=== PATIENT | female | born 1995 | race Caucasian/White ===

== ENCOUNTER 2017-08-14 00:26 | Emergency (ER) | payer OTHER ==
[~2017-08-14] VITALS: Ht 154.9 cm; Wt 72.6 kg
[2017-08-14 00:50] VITALS: Ht 154.9 cm; Wt 72.6 kg
[2017-08-14 07:04] VITALS: BP 121/50
== END 2017-08-14 07:04 | disposition home or self-care (01) ==
LOC: ED 00:26
DX: S62.91XA Unspecified fracture of right hand, initial encounter for closed fracture (principal); S63.601A Unspecified sprain of right thumb, initial encounter; J45.909 Unspecified asthma, uncomplicated; W01.0XXA Fall on same level from slipping, tripping and stumbling without subsequent striking against object, initial encounter; Y93.01 Activity, walking, marching and hiking; Y99.8 Other external cause status; Y92.098 Other place in other non-institutional residence as the place of occurrence of the external cause
CPT/HCPCS: Q0092

== ENCOUNTER 2017-12-24 01:16 | Emergency (ER) | payer OTHER ==
[~2017-12-24] VITALS: Ht 162.6 cm; Wt 60.8 kg
[2017-12-24 01:36] VITALS: Ht 162.6 cm; Wt 60.8 kg
[2017-12-24 03:03] VITALS: BP 101/62
== END 2017-12-24 03:03 | disposition home or self-care (01) ==
LOC: ED 01:16
DX: G43.909 Migraine, unspecified, not intractable, without status migrainosus (principal); J45.909 Unspecified asthma, uncomplicated
CPT/HCPCS: J1885

== ENCOUNTER 2018-02-11 03:51 | Emergency (ER) | payer OTHER ==
[~2018-02-11] VITALS: Ht 154.9 cm; Wt 58.5 kg
[2018-02-11 04:00] VITALS: Ht 154.9 cm; Wt 58.5 kg
[2018-02-11 07:12] VITALS: BP 103/76
== END 2018-02-11 07:12 | disposition home or self-care (01) ==
LOC: ED 03:51
DX: L02.32 Furuncle of buttock (principal); J45.909 Unspecified asthma, uncomplicated

== ENCOUNTER 2018-08-12 00:12 | Emergency (ER) | payer OTHER ==
[~2018-08-12] VITALS: Ht 154.9 cm; Wt 59.4 kg
[2018-08-12 00:21] VITALS: Ht 154.9 cm; Wt 59.4 kg
[2018-08-12 00:55] LABS: BASOPHIL % 0.3 % (0-2); PLATELET COUNT 313 x10^3mcL (130-400); RED CELL DISTRIBUTION WIDTH 12.6 % (11.5-14.5)
[2018-08-12 00:57] LABS: CARBON DIOXIDE 30.8 mmol/L (21-32); CHLORIDE SERUM 101 mmol/L (98-107); CREATININE SERUM 0.8 mg/dL (0.6-1.0); GFR1 > 60 mL/min; GLUCOSE SERUM 77 mg/dL (74-106); POTASSIUM SERUM 3.6 mmol/L (3.5-5.1); SODIUM SERUM 139 mmol/L (136-145)
[2018-08-12 01:01] LABS: ALKALINE PHOSPHATASE 80 U/L (46-116); ALT/SGPT 16 U/L (14-59); AMYLASE 66 U/L (25-115); AST/SGOT 12 U/L (15-37); BILIRUBIN TOTAL 0.23 mg/dL (0.20-1.00); LIPASE 142 IU/L (73-393); TOTAL PROTEIN, SERUM 7.8 g/dL (6.4-8.2)
[2018-08-12 01:57] VITALS: BP 107/26
== END 2018-08-12 01:57 | disposition home or self-care (01) ==
LOC: ED 00:12
PROVIDERS: Emergency Medicine
DX: R10.13 Epigastric pain (principal); R11.0 Nausea; J45.909 Unspecified asthma, uncomplicated
CPT/HCPCS: 36415; J1885